=== PATIENT | male | born 1985 | race African-American/Black ===

== ENCOUNTER 2020-01-01 15:02 | Emergency (ER) | payer OTHER ==
[~2020-01-01] VITALS: Ht 170.2 cm; Wt 57.0 kg
[2020-01-01] MEDS ORDERED: ONDANSETRON PF 4 MG/2 ML VIAL. IV ONE (15:30)
[2020-01-01] MEDS ORDERED: IV NORMAL SALINE 1000ML BAG 1,000 ML IV ONE (15:30)
[2020-01-01] MEDS ORDERED: KETOROLAC 30 MG/ML VIAL. IV ONE (15:30)
[2020-01-01 15:45] LABS: BASO # 0.1 x10^3/uL (0.0-0.2); BASO % 1 % (0-3); EOS # 0.1 x10^3/uL (0.0-0.7); EOS % 2 % (0-3); HEMATOCRIT 39.2 % (39.0-53.0); HEMOGLOBIN 13.2 g/dL (13.0-17.5); LYMPH # 0.7 x10^3/uL (1.0-4.8); LYMPH % 8 % (24-48); MEAN CORPUSCULAR HEMOGLOBIN 33 pg (25-35); MEAN CORPUSCULAR HGB CONC 34 g/dL (31-37); MEAN CORPUSCULAR VOLUME 98 fL (79-100); MONO # 0.5 x10^3/uL (0.0-1.1); MONO % 6 % (0-9); NEUT # 7.5 x10^3/uL (1.8-7.7); NEUT % 84 % (31-73); PLATELET COUNT 305 x10^3/uL (140-400); RED BLOOD COUNT 4.01 x10^6/uL (4.30-5.70); WHITE BLOOD COUNT 8.9 x10^3/uL (4.0-11.0)
[2020-01-01 15:49] LABS: BILIRUBIN,URINE MODERATE (NEG); CLARITY,URINE CLEAR; COLOR,URINE AMBER; NITRITE,URINE NEGATIVE (NEG); PROTEIN,URINE >=300 mg/dL (NEG-TRACE)
[2020-01-01 15:58] LABS: CALCIUM 9.6 mg/dL (8.5-10.1); CREATININE 1.5 mg/dL (0.7-1.3); GFR 64.1; POTASSIUM 4.1 mmol/L (3.5-5.1)
[2020-01-01 16:03] LABS: BARBITURATES NEG (NEG); BENZODIAZEPINES NEG (NEG); CANNABINOIDS POS (NEG); COCAINE POS (NEG); METHADONE NEG (NEG); OPIATES NEG (NEG); PHENCYCLIDINE NEG (NEG)
[2020-01-01 16:04] LABS: TOTAL BILIRUBIN 0.9 mg/dL (0.2-1.0); TOTAL PROTEIN 8.2 g/dL (6.4-8.2)
[2020-01-01 16:04] LABS: AMPHETAMINE/METHAMPHETAMINE NEG (NEG)
[2020-01-01 16:05] LABS: BACTERIA,URINE 0 /HPF (0-FEW); HYALINE CASTS, URINE MODERATE /HPF
--- NOTE | 2020-01-01 16:27 | RAD ---
Abdominal and Pelvis CT, Without Contrast: History: Right flank pain with nausea vomiting and diarrhea for 3 days Comparison: None. Procedure: Axial images are obtained of the abdomen and pelvis, without IV or oral contrast. Oral Contrast: No Findings: Evaluation of solid organs is limited without contrast. Liver: Normal. Spleen: Normal. Pancreas: Normal. Adrenal Glands: Normal. Kidneys: Normal. There is no free air or free fluid. There is no lymphadenopathy. The urinary bladder is collapsed not well evaluated. 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 There is no pericolonic inflammation identified. The gallbladder appears within normal limits. The appendix is not seen. 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 Chronic inflammation or chronic obstruction can cause this appearance as well. End impression PQRS Compliance Statement: One or more of the following individualized dose reduction techniques were utilized for this examination: 1. Automated exposure control 2. Adjustment of the mA and/or kV according to patient size 3. Use of iterative reconstruction technique Electronically signed by: Joaquin Hays III, MD (01/01/2020 4:24 PM) [id number]
[2020-01-01 16:50] VITALS: BP 187/108
[2020-01-01] MEDS ORDERED: ONDA4TAB12 PO (16:57)
--- NOTE | 2020-01-01 16:57 | PHYS DOC ---
Past Medical History Past Medical History: Hypertension Past Surgical History: No Surgical History Smoking Status: Current Every Day Smoker Alcohol Use: Occasionally Social History Narrative: USES MARIJUANA OCCASIONALLY General Adult EDM: Chief Complaint: NAUSEA/VOMITING/DIARRHA HPI: HPI: Patient is a 34-year-old male with substance abuse issues who presents with a variety of complaints today. He states he has had right-sided flank pain for a couple of days. He also has had some nausea and decreased appetite. He denies any diarrhea. He has not had any fever chills or sweats. He denies any weight loss. He does state that every now and then he gets some itching in his low back. He denies any abdominal pain. He denies melena hematochezia or hematemesis. He denies any night sweats. [] Review of Systems: Review of Systems: Constitutional: Denies fever or chills. [] Eyes: Denies change in visual acuity. [] HENT: Denies nasal congestion or sore throat. [] Respiratory: Denies cough or shortness of breath. [] Cardiovascular: Denies chest pain or edema. [] GI: Denies abdominal pain, nausea, vomiting, bloody stools or diarrhea. [] : Denies dysuria. [] Musculoskeletal: Denies back pain or joint pain. [] Integument: Denies rash. [] Neurologic: Denies headache, focal weakness or sensory changes. [] Endocrine: Denies polyuria or polydipsia. [] Lymphatic: Denies swollen glands. [] Psychiatric: Reports anxiety. [] Heart Score: Risk Factors: Risk Factors: DM, Current or recent (<one month) smoker, HTN, HLP, family history of CAD, obesity. Risk Scores: Score 0 - 3: 2.5% MACE over next 6 weeks - Discharge Home Score 4 - 6: 20.3% MACE over next 6 weeks - Admit for Clinical Observation Score 7 - 10: 72.7% MACE over next 6 weeks - Early Invasive Strategies Current Medications: Current Medications Medications (Trade) Dose Ordered Sig/Nils Start Time Stop Time Status Last Admin Dose Admin Ketorolac Tromethamine (Toradol 30mg Vial) 30 mg 1X ONCE 01/01/20 15:30 01/01/20 15:56 DC 01/01/20 16:14 30 MG Ondansetron HCl (Zofran) 4 mg 1X ONCE 01/01/20 15:30 01/01/20 15:56 DC 01/01/20 16:14 4 MG Sodium Chloride 1,000 ml @ 1,000 mls/hr 1X ONCE 01/01/20 15:30 01/01/20 16:29 DC 01/01/20 16:14 1,000 MLS/HR Allergies: Allergies: Allergies Coded Allergies Type Severity Reaction Last Updated Verified No Known Drug Allergies 01/01/20 No Physical Exam: PE: Constitutional: Well developed, well nourished, mild to moderate distress, non- toxic appearance. [] HENT: Normocephalic, atraumatic, bilateral external ears normal, oropharynx moist, no oral exudates, nose normal. [] Eyes: PERRLA, EOMI, conjunctiva normal, no discharge. [] Neck: Normal range of motion, no tenderness, supple, no stridor. [] Cardiovascular:Heart rate regular rhythm, no murmur [] Lungs & Thorax: Bilateral breath sounds clear to auscultation [] Abdomen: Bowel sounds normal, soft, no tenderness, no masses, no pulsatile masses. [] Skin: Warm, dry, no erythema, no rash. [] Back: No tenderness, no CVA tenderness. [] Extremities: No tenderness, no cyanosis, no clubbing, ROM intact, no edema. [] Neurologic: Alert and oriented X 3, normal motor function, normal sensory function, no focal deficits noted. [] Psychologic: Affect normal, judgement normal, mood normal. [] Current Patient Data: Labs: Laboratory Tests Test 01/01/20 15:18 01/01/20 15:35 Urine Collection Type Unknown Urine Color Carolann Urine Clarity Clear Urine pH 7.0 (<5.0-8.0) Urine Specific [place] >=1.030 (1.000-1.030) Urine Protein >=300 mg/dL (NEG-TRACE) Urine Glucose (UA) Negative mg/dL (NEG) Urine Ketones (Stick) 15 mg/dL (NEG) Urine Blood Moderate (NEG) Urine Nitrite Negative (NEG) Urine Bilirubin Moderate (NEG) Urine Urobilinogen Dipstick 1.0 mg/dL (0.2 mg/dL) Urine Leukocyte Esterase Small (NEG) Urine RBC 11-20 /HPF (0-2) Urine WBC 5-10 /HPF (0-4) Urine Squamous Epithelial Cells None /LPF Urine Bacteria 0 /HPF (0-FEW) Urine Hyaline Casts Moderate /HPF Urine Mucus Mod /LPF Urine Opiates Screen Neg (NEG) Urine Methadone Screen Neg (NEG) Urine Barbiturates Neg (NEG) Urine Phencyclidine Screen Neg (NEG) Urine Amphetamine/Methamphetamine Neg (NEG) Urine Benzodiazepines Screen Neg (NEG) Urine Cocaine Screen Pos (NEG) Urine Cannabinoids Screen Pos (NEG) Urine Ethyl Alcohol Neg (NEG) White Blood Count 8.9 x10^3/uL (4.0-11.0) Red Blood Count 4.01 x10^6/uL (4.30-5.70) L Hemoglobin 13.2 g/dL (13.0-17.5) Hematocrit 39.2 % (39.0-53.0) Mean Corpuscular Volume 98 fL (79-100) Mean Corpuscular Hemoglobin 33 pg (25-35) Mean Corpuscular Hemoglobin Concent 34 g/dL (31-37) Red Cell Distribution Width 14.0 % (11.5-14.5) Platelet Count 305 x10^3/uL (140-400) Neutrophils (%) (Auto) 84 % (31-73) H Lymphocytes (%) (Auto) 8 % (24-48) L Monocytes (%) (Auto) 6 % (0-9) Eosinophils (%) (Auto) 2 % (0-3) Basophils (%) (Auto) 1 % (0-3) Neutrophils # (Auto) 7.5 x10^3/uL (1.8-7.7) Lymphocytes # (Auto) 0.7 x10^3/uL (1.0-4.8) L Monocytes # (Auto) 0.5 x10^3/uL (0.0-1.1) Eosinophils # (Auto) 0.1 x10^3/uL (0.0-0.7) Basophils # (Auto) 0.1 x10^3/uL (0.0-0.2) Sodium Level 138 mmol/L (136-145) Potassium Level 4.1 mmol/L (3.5-5.1) Chloride Level 96 mmol/L (98-107) L Carbon Dioxide Level 31 mmol/L (21-32) Anion Gap 11 (6-14) Blood Urea Nitrogen 15 mg/dL (8-26) Creatinine 1.5 mg/dL (0.7-1.3) H Estimated GFR (Cockcroft-Gault) 64.1 BUN/Creatinine Ratio 10 (6-20) Glucose Level 103 mg/dL (70-99) H Calcium Level 9.6 mg/dL (8.5-10.1) Total Bilirubin 0.9 mg/dL (0.2-1.0) Aspartate Amino Transferase (AST) 26 U/L (15-37) Alanine Aminotransferase (ALT) 28 U/L (16-63) Alkaline Phosphatase 96 U/L (46-116) Total Protein 8.2 g/dL (6.4-8.2) Albumin 4.0 g/dL (3.4-5.0) Albumin/Globulin Ratio 1.0 (1.0-1.7) Lipase 67 U/L (73-393) L Laboratory Tests 01/01/20 15:35 Laboratory Tests 01/01/20 15:35 Vital Signs: Vital Signs Date Time Temp Pulse Resp B/P (MAP) Pulse Ox O2 Delivery O2 Flow Rate FiO2 01/01/20 15:40 98.6 106 16 146/105 (119) 97 Room Air 98.6 EKG: EKG: [] Radiology/Procedures: Radiology/Procedures: [] Impression: REASON: right flank pain-N/V/D X 3 DAYS PROCEDURE: CT ABDOMEN PELVIS WO CONTRAST Abdominal and Pelvis CT, Without Contrast: History: Right flank pain with nausea vomiting and diarrhea for 3 days Comparison: None. Procedure: Axial images are obtained of the abdomen and pelvis, without IV or oral contrast. Oral Contrast: No Findings: Evaluation of solid organs is limited without contrast. Liver: Normal. Spleen: Normal. Pancreas: Normal. Adrenal Glands: Normal. Kidneys: Normal. There is no free air or free fluid. There is no lymphadenopathy. The urinary bladder is collapsed not well evaluated. 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 There is no pericolonic inflammation identified. The gallbladder appears within normal limits. The appendix is not seen. 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 Chronic inflammation or chronic obstruction can cause this appearance as well. Course & Med Decision Making: Course & Med Decision Making Pertinent Labs and Imaging studies reviewed. (See chart for details) [ED course: Evaluation reveals a 34-year-old male with nausea and some flank pain. CT scan showed a questionable finding consistent with small bowel lymphoma. I discussed this finding at length with the patient. I let him know that he would need to follow-up with a swatch clerk and/or legal nurse consultant oncologist for final and definitive diagnosis. He voiced an understanding to this. He did get IV fluids and Zofran during his stay which did help alleviate his symptoms.] Dragon Disclaimer: Dragon Disclaimer: This electronic medical record was generated, in whole or in part, using a voice recognition dictation system. 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 Urbina's office on Saturday to get follow-up on the findings of your small bowel. Patient Instructions: Nausea, Adult Additional Instructions: Return to the emergency department with any new or concerning symptoms Scripts Ondansetron (ONDANSETRON ODT) 4 Mg Tab.rapdis 1 TAB PO PRN Q6-8HRS for VOMITING, #16 TAB Prov: JC ZAYAS DO 01/01/20 JC ZAYAS DO January 01, 2020 16:57
== END 2020-01-01 17:00 | disposition home or self-care (01) ==
LOC: ER 15:02
DX: C85.83 Other specified types of non-Hodgkin lymphoma, intra-abdominal lymph nodes (principal); I10 Essential (primary) hypertension; F17.200 Nicotine dependence, unspecified, uncomplicated
CPT/HCPCS: 36415; 74176; 80053; 80307; 81001; 83690; 85025; 87086; 96361; 96374; 96375; 99284; J1885; J2405; J7030

== ENCOUNTER → 2020-01-14 | Outpatient (CLI) | payer OTHER ==
[2020-01-01 16:50] VITALS: BP 187/108
[~2020-01-14] MED LIST: ONDA4TAB12 PO
== END | disposition home or self-care (01) ==
LOC: LAB 12:34
PROVIDERS: ATTEND Internal Medicine Gastroenterology
DX: Z11.59 Encounter for screening for other viral diseases (principal)
CPT/HCPCS: C9803; U0003

== ENCOUNTER → 2020-02-03 | Outpatient (CLI) | payer OTHER | END | disposition home or self-care (01) | LOC: LAB 13:42 | PROVIDERS: ATTEND Orthopaedic Surgery Sports Medicine | DX: Z11.59 Encounter for screening for other viral diseases (principal) | CPT/HCPCS: U0003-CS ==

== ENCOUNTER → 2020-02-08 | Day surgery (SDC) | payer OTHER ==
[~2020-02-08] MED LIST changes: +IV RINGERS,LACTATED 1000ML 1,000 ML IV ONE; +PROPOFOL 10 MG/ML (20ML) VIAL. IV ONE
--- NOTE | 2020-02-08 13:31 | PDOC1 ---
History and Physical Date of Admission Date of Admission DATE: 02/08/20 TIME: 13:24 Identification/Chief Complaint Chief Complaint Abnormal CT Source Source: Chart review, Patient History of Present Illness History of Present Illness 34 lith[place]ian/o male seen in ER 12/31 with N, V and right flank pain. On imaging, question of small bowel lesion in LUQ. Seen in our office after; w/o major symptoms at that time and presently. Had been recommended to have small bowel x-ray before scope, but did not do. Presents today for scope. Currently no GI complaints. Past Medical History Past Medical History No meaningful past illnesses. Past Surgical History Past Surgical History: No pertinent history Family History Family History: Family History Unknown Social History Smoke: 1 pack per day ALCOHOL: other (mostly weekends; heavier in the past) Drugs: Cocaine, Marijuana Current Medications Current Medications Current Medications Ringer's Solution 1,000 ml @ 75 mls/hr 1X ONCE IV ; Start 02/08/20 at 13:30; Stop 02/09/20 at 02:49; Status UNV Propofol (Diprivan) 200 mg STK-MED ONCE IV ; Start 02/08/20 at 13:23; Stop 02/08/20 at 13:24; Status DC Active Scripts Active Allergies Allergies: Coded Allergies: No Known Drug Allergies (Unverified , 02/08/20) ROS Review of System Otherwise negative. Physical Exam General: Alert, Oriented X3, Cooperative, No acute distress Lungs: Clear to auscultation Heart: S1S2, RRR, no gallops, no murmurs Abdomen: Normal bowel sounds, Soft, No tenderness, No hepatosplenomegaly, No masses Rectal Exam: not examined Extremities: No cyanosis, No edema Skin: No significant lesion Neuro: Normal gait, Normal speech, Strength at 5/5 X4 ext, Normal tone, Sensation intact, Cranial nerves 3-12 NL, Reflexes 2+ Psych/Mental Status: Mental status NL, Mood NL Vitals Vitals Vital Signs Date Time Temp Pulse Resp B/P (MAP) Pulse Ox O2 Delivery O2 Flow Rate FiO2 02/08/20 13:13 98.9 98 20 99 98.9 VTE Prophylaxis Ordered VTE Prophylaxis Devices: No VTE Pharmacological Prophylaxi: No Assessment/Plan Assessment/Plan IMP: Abnormal CT with question of small bowel abnormality. PLAN: Small bowel enteroscopy; will endeavor to reach area in question. TONO URBINA MD Feb 08, 2020 13:31
--- NOTE | 2020-02-08 14:02 | PDOC4 ---
PROCEDURE Procedure Enteroscopy to proximal jejunum. Indication: abnormal CT read as possible proximal small bowel mass. Meds: per anesthesia Findings: E--grade A esophagitis at 40cm. G--scattered petechiae, body. D--Normal J-normal to extent of exam; was well beyond ligament of Trietz. No mass encountered. Frederic. well. IMP: GERD Gastric petechiae REC: Should have small bowel x-ray; will encourage to call office to schedule. If does x-ray, f/u in office in 2 weeks. TONO URBINA MD Feb 08, 2020 14:02
[2020-02-08 14:26] VITALS: BP 160/99
== END | disposition home or self-care (01) ==
LOC: ENDOS 12:33
PROVIDERS: ATTEND Internal Medicine Gastroenterology
DX: R13.10 Dysphagia, unspecified (principal); K21.0 Gastro-esophageal reflux disease with esophagitis; F17.200 Nicotine dependence, unspecified, uncomplicated; F15.90 Other stimulant use, unspecified, uncomplicated; R23.3 Spontaneous ecchymoses
CPT/HCPCS: 43235; J2704

== ENCOUNTER 2020-03-03 09:45 | Emergency (ER) | payer SELFPAY ==
[~2020-03-03] VITALS: Ht 170.2 cm; Wt 57.2 kg
[~2020-03-03 09:45] MED LIST changes: -IV RINGERS,LACTATED 1000ML 1,000 ML IV ONE; -PROPOFOL 10 MG/ML (20ML) VIAL. IV ONE
[2020-03-03 10:04] LABS: BILIRUBIN,URINE SMALL (NEG); CLARITY,URINE CLEAR; COLOR,URINE AMBER; NITRITE,URINE NEGATIVE (NEG); PROTEIN,URINE >=300 mg/dL (NEG-TRACE)
[2020-03-03 10:13] LABS: HYALINE CASTS, URINE FEW /HPF; SQUAMOUS EPITHELIAL CELL,UR OCC /LPF
[2020-03-03 10:14] LABS: BACTERIA,URINE FEW /HPF (0-FEW)
--- NOTE | 2020-03-03 10:22 | PHYS DOC ---
Past Medical History Past Medical History: Hypertension Past Surgical History: No Surgical History Smoking Status: Current Every Day Smoker Alcohol Use: Occasionally General Adult EDM: Chief Complaint: ABDOMINAL PAIN HPI: HPI: 34-year-old male presents emergency department today with lower abdominal pain with dysuria for the past few days. He has had some nausea with a few episodes of vomiting. He is noticed a small amount of red blood when he wiped today but denies any significant amount of bleeding in his stools. His abdominal pain is a throbbing aching pain that radiates into his groin. He denies any recent swelling or new hernias. He denies testicular pain. Review of systems negative for chest pain shortness of breath. Positive for abdominal pain vomiting and dysuria. Negative for rashes headache or neck stiffness. All other review of systems negative. ED course: 34-year-old male presenting with dysuria and abdominal pain. Vital signs are unremarkable. Exam shows a soft nontender abdomen. No hernias on exam. Creatinine is at baseline at 1.6 which was similar to previous in December of this year. Urinalysis shows negative leuk esterase negative nitrites. Increase specific gravity. Red blood cells. Bacteria present. White blood cells present. Red blood cells present. Given his dysuria we will cover with doxycycline for UTI and possible STI. CT shows some bladder wall thickening and some prominence of the proximal small bowel which may reflect duodenal or jejunal inflammation. On reexamination the patient is feeling better. We will discharge him with the oral doxycycline. Will refer him to his PCP within the next day or 2 and GI within the next 5 to 7 days. He is to return for any worsening symptoms or any concerns. He will need a repeat abdominal exam over the next day or 2. Heart Score: Risk Factors: Risk Factors: DM, Current or recent (<one month) smoker, HTN, HLP, family history of CAD, obesity. Risk Scores: Score 0 - 3: 2.5% MACE over next 6 weeks - Discharge Home Score 4 - 6: 20.3% MACE over next 6 weeks - Admit for Clinical Observation Score 7 - 10: 72.7% MACE over next 6 weeks - Early Invasive Strategies Allergies: Allergies: Allergies Coded Allergies Type Severity Reaction Last Updated Verified No Known Drug Allergies 02/08/20 No Physical Exam: PE: Constitutional: Well developed, well nourished, no acute distress, non-toxic appearance. [] HENT: Normocephalic, atraumatic, bilateral external ears normal, oropharynx moist, no oral exudates, nose normal. [] Eyes: PERRLA, EOMI, conjunctiva normal, no discharge. [] Neck: Normal range of motion, no tenderness, supple, no stridor. [] Cardiovascular:Heart rate regular rhythm, no murmur [] Lungs & Thorax: Bilateral breath sounds clear to auscultation [] Abdomen: Bowel sounds normal, soft, no tenderness, no masses, no pulsatile masses. [] Negative McBurney's point. Negative Woo sign. Skin: Warm, dry, no erythema, no rash. [] Back: No tenderness, no CVA tenderness. [] Extremities: No tenderness, no cyanosis, no clubbing, ROM intact, no edema. [] Neurologic: Alert and oriented X 3, normal motor function, normal sensory function, no focal deficits noted. [] Psychologic: Affect normal, judgement normal, mood normal. [] Current Patient Data: Labs: Laboratory Tests Test 03/03/20 09:54 Urine Collection Type Unknown Urine Color Carolann Urine Clarity Clear Urine pH 6.0 (<5.0-8.0) Urine Specific [place] >=1.030 (1.000-1.030) Urine Protein >=300 mg/dL (NEG-TRACE) Urine Glucose (UA) Negative mg/dL (NEG) Urine Ketones (Stick) Trace mg/dL (NEG) Urine Blood Moderate (NEG) Urine Nitrite Negative (NEG) Urine Bilirubin Small (NEG) Urine Urobilinogen Dipstick 1.0 mg/dL (0.2 mg/dL) Urine Leukocyte Esterase Negative (NEG) Urine RBC 6-10 /HPF (0-2) Urine WBC 1-4 /HPF (0-4) Urine Squamous Epithelial Cells Occ /LPF Urine Bacteria Few /HPF (0-FEW) Urine Hyaline Casts Few /HPF Urine Mucus Marked /LPF Vital Signs: Vital Signs Date Time Temp Pulse Resp B/P (MAP) Pulse Ox O2 Delivery O2 Flow Rate FiO2 03/03/20 10:13 98.4 79 18 148/111 (123) 95 Room Air 98.4 EKG: EKG: [] Radiology/Procedures: Radiology/Procedures: [] Course & Med Decision Making: Course & Med Decision Making Pertinent Labs and Imaging studies reviewed. (See chart for details) [] Dragon Disclaimer: Dragon Disclaimer: This electronic medical record was generated, in whole or in part, using a voice recognition dictation system. Departure Departure Impression: Primary Impression: Abdominal pain Additional Impression: N&V (nausea and vomiting) Disposition: HOME, SELF-CARE Condition: STABLE Referrals: NO PCP (PCP) Patient Instructions: Abdominal Pain Additional Instructions: Follow-up with your primary physician in 1 to 2 days. Return to the emergency department if you have any new or concerning findings. Scripts Doxycycline Hyclate (DOXYCYCLINE HYCLATE) 100 Mg Tablet 1 TAB PO BID, #20 TAB Prov: MOISES VILLATORO MD 03/03/20 Justicifation of Admission Dx: Justifications for Admission: Justification of Admission Dx: N/A MOISES VILLATORO MD Mar 03, 2020 10:22
[2020-03-03 10:23] LABS: BASO # 0.1 x10^3/uL (0.0-0.2); BASO % 1 % (0-3); EOS # 0.3 x10^3/uL (0.0-0.7); EOS % 4 % (0-3); HEMATOCRIT 42.8 % (39.0-53.0); HEMOGLOBIN 14.5 g/dL (13.0-17.5); LYMPH # 1.3 x10^3/uL (1.0-4.8); LYMPH % 17 % (24-48); MEAN CORPUSCULAR HEMOGLOBIN 34 pg (25-35); MEAN CORPUSCULAR HGB CONC 34 g/dL (31-37); MEAN CORPUSCULAR VOLUME 101 fL (79-100); MONO # 0.7 x10^3/uL (0.0-1.1); MONO % 9 % (0-9); NEUT # 5.3 x10^3/uL (1.8-7.7); NEUT % 70 % (31-73); PLATELET COUNT 307 x10^3/uL (140-400); RED BLOOD COUNT 4.25 x10^6/uL (4.30-5.70); RED CELL DISTRIBUTION WIDTH 14.1 % (11.5-14.5); WHITE BLOOD COUNT 7.6 x10^3/uL (4.0-11.0)
[2020-03-03 10:29] LABS: CALCIUM 9.3 mg/dL (8.5-10.1); CREATININE 1.6 mg/dL (0.7-1.3); GFR 59.5; POTASSIUM 3.7 mmol/L (3.5-5.1)
[2020-03-03 10:35] LABS: ALBUMIN 3.7 g/dL (3.4-5.0); DIRECT BILIRUBIN 0.2 mg/dL (0.0-0.2); TOTAL BILIRUBIN 0.6 mg/dL (0.2-1.0)
[2020-03-03] MEDS ORDERED: IOHEXOL 300 MG/ML 100ML VIAL. IV ONE (10:45)
[2020-03-03] MEDS ORDERED: CONTRAST GIVEN. MC PRN (10:45)
--- NOTE | 2020-03-03 11:53 | RAD ---
EXAM: CT ABDOMEN/PELVIS WITH CONTRAST. HISTORY: Abdominal pain. TECHNIQUE: Computed tomography of the abdomen and pelvis was performed after the intravenous administration of iodinated contrast. One or more of the following individualized dose reduction techniques were utilized for this examination: 1. Automated exposure control. 2. Adjustment of the mA and/or kV according to patient size. 3. Use of iterative reconstruction technique. COMPARISON: 01/01/2020. FINDINGS: Lung windows through the visualized portions of the bases reveal no abnormality. Bone windows reveal no suspicious lesions. There is diffuse bladder wall thickening. There is no clear urothelial thickening more proximally. There is no hydronephrosis. The kidneys are unremarkable. The liver, gallbladder, pancreas, adrenal glands and spleen are unremarkable. There are no pathologically enlarged lymph nodes. There is no small bowel obstruction. Jejunal wall thickness is prominent without focal lesions. The appendix is not inflamed. IMPRESSION: 1. Bladder wall thickening. Correlate for inflammation or chronic outlet obstruction. 2. Prominence of the proximal small bowel wall without focal lesions. This may reflect a normal appearance, but correlate to exclude duodenal and jejunal inflammation. Electronically signed by: Milady Becker MD (03/03/2020 11:50 AM) [id number]
[2020-03-03 12:07] VITALS: BP 164/105
[2020-03-03] MEDS ORDERED: DOXY100T PO (12:17)
== END 2020-03-03 12:56 | disposition home or self-care (01) ==
LOC: ER 09:45
DX: R10.30 Lower abdominal pain, unspecified (principal); R11.2 Nausea with vomiting, unspecified; I10 Essential (primary) hypertension; F17.200 Nicotine dependence, unspecified, uncomplicated
CPT/HCPCS: 36415; 74177; 80048; 80076; 81001; 83690; 85025; 99285; Q9967